=== PATIENT | female | born 1965 | race Caucasian/White ===

== ENCOUNTER 2022-07-30 09:28 | Outpatient (REF) | payer OTHER, SELFPAY ==
[2022-07-30 11:13] LABS: MANUAL DIFF FLAG NO
[2022-07-30 11:26] LABS: Basophils Percent Auto 0.7 % (0-2); Eosinophils Absolute Auto 0.1 X10*3/uL (0.0-0.4); Eosinophils Percent Auto 3.3 % (0-4); Hemoglobin 13.8 g/dl (12.0-16.0); Imm Gran Abs Auto 0.01 X10*3/uL (0.00-0.03); Imm Gran Pct Auto 0.2 % (0.0-0.4); Lymphocytes Absolute Auto 1.9 X10*3/uL (1.2-4.9); Lymphocytes Percent Auto 44.4 % (20-40); Mean Corpuscular HGB Conc 33.7 g/dl (31.0-35.0); Mean Corpuscular Hemoglobin 29.1 pg (27.0-33.0); Mean Corpuscular Volume 86.3 fL (80.0-98.0); Mean Platelet Volume 10.5 fL (9.4-12.3); Monocytes Absolute Auto 0.3 X10*3/uL (0.1-1.2); Monocytes Percent Auto 6.3 % (2-11); Neutrophils Absolute Auto 1.9 x10*3/uL (2.0-8.3); Neutrophils Percent Auto 45.1 % (45-73); Platelet Count 213 X10*3/uL (160-400); Red Blood Count 4.75 X10*6/uL (4.20-5.50); Red Cell Distribution Width 12.3 % (11.0-16.0); White Blood Count 4.3 X10*3/uL (4.8-10.8)
[2022-07-30 13:08] LABS: Alanine Aminotransferase 18 U/L (0-31); Albumin Level 4.6 g/dL (3.5-5.0); Alkaline Phosphatase 79 U/L (39-117); Anion Gap 12 (12-20); Aspartate Amino Transferase 20 U/L (5-31); Bilirubin Total 0.5 mg/dL (0.0-1.0); Blood Urea Nitrogen 17 mg/dL (9-16); Calcium 10.3 mg/dL (8.4-10.2); Carbon Dioxide 27 mmol/L (22-29); Chloride 105 mmol/L (96-108); Cholesterol 301 mg/dL; Estimated Glomerular Filt Rate > 60; Glucose Random 87 mg/dL (60-115); HDL Cholesterol 55 mg/dL; Iron 119 mcg/dL (30-160); LDL Cholesterol Calculated 221 mg/dl; Percent Iron Saturation 40 % (15-50); Potassium 4.6 mmol/L (3.3-5.1); Sodium 139 mmol/L (135-145); Total Iron Binding Capacity 294 mcg/dL (228-428); Triglycerides 127 mg/dL; Unsaturated Iron Binding 175 ug/dL
[2022-07-30 13:14] LABS: Ferritin 140 ng/mL (10-250)
[2022-07-30 13:15] LABS: Vitamin D 25-OH Total 110.5 ng/mL (>30)
[2022-08-04 16:18] LABS: Vitamin D 25-OH, D2 <4 ng/mL; Vitamin D 25-OH, D3 114 ng/mL; Vitamin D 25-OH, Total 114 ng/mL (30-100)
[2022-08-05 20:19] LABS: VITAMIN D (1,25 OH) D3 59 pg/mL; Vit D (1,25-Dihydroxy) Total 59 pg/mL (18-72); Vitamin D (1,25 OH) D2 <8 pg/mL
== END 2022-07-30 09:29 | disposition home or self-care (01) ==
LOC: HO.MANLDS 09:28
PROVIDERS: Visit Provider Internal Medicine
DX: E55.9 Vitamin D deficiency, unspecified (principal); E78.5 Hyperlipidemia, unspecified
CPT/HCPCS: 36415; 80053; 80061; 82306; 82652; 82728; 83540; 85025

== ENCOUNTER 2024-01-12 15:04 | Outpatient (REF) | payer OTHER, SELFPAY ==
[2024-01-12 18:11] LABS: MANUAL DIFF FLAG NO
[2024-01-12 18:44] LABS: Alanine Aminotransferase 33 U/L (0-31); Albumin Level 3.9 g/dL (3.5-5.0); Alkaline Phosphatase 121 U/L (39-117); Anion Gap 12 (12-20); Aspartate Amino Transferase 22 U/L (5-31); Bilirubin Total 0.3 mg/dL (0.0-1.0); Blood Urea Nitrogen 14 mg/dL (9-16); C Reactive Protein 6.55 mg/dL (< or = 0.50); Calcium 10.6 mg/dL (8.4-10.2); Carbon Dioxide 26 mmol/L (22-29); Chloride 105 mmol/L (96-108); Estimated Glomerular Filt Rate > 60; Glucose Random 96 mg/dL (60-115); Iron 22 mcg/dL (30-160); Magnesium 2.3 mg/dL (1.6-2.6); Percent Iron Saturation 11 % (15-50); Phosphorus 3.1 mg/dL (2.7-4.5); Potassium 4.4 mmol/L (3.3-5.1); Sodium 139 mmol/L (135-145); Total Iron Binding Capacity 207 mcg/dL (228-428); Total Protein 7.3 g/dL (6.5-8.0); Unsaturated Iron Binding 185 ug/dL
[2024-01-12 18:45] LABS: Appearance Urine Turbid; Color Urine Yellow; Glucose Urine UA Negative (Negative); Leukocyte Esterase Urine Negative (Negative); Nitrite Urine Negative (Negative); PH 8.5 (5.0-9.0); Specific Gravity - Urine 1.015 (1.005-1.025); Urine Blood Negative (Negative); Urine Ketones Negative (Negative); Urine Protein Negative (Neg-Trace)
[2024-01-12 18:49] LABS: Basophils Percent Auto 0.6 % (0-2); Eosinophils Absolute Auto 0.1 X10*3/uL (0.0-0.4); Eosinophils Percent Auto 1.3 % (0-4); Hematocrit 33.5 % (37.0-47.0); Hemoglobin 10.8 g/dl (12.0-16.0); Imm Gran Abs Auto 0.04 X10*3/uL (0.00-0.03); Imm Gran Pct Auto 0.6 % (0.0-0.4); Lymphocytes Absolute Auto 0.9 X10*3/uL (1.2-4.9); Lymphocytes Percent Auto 14.9 % (20-40); Mean Corpuscular HGB Conc 32.2 g/dl (31.0-35.0); Mean Corpuscular Hemoglobin 28.5 pg (27.0-33.0); Mean Corpuscular Volume 88.4 fL (80.0-98.0); Mean Platelet Volume 10.5 fL (9.4-12.3); Monocytes Absolute Auto 0.5 X10*3/uL (0.1-1.2); Monocytes Percent Auto 7.8 % (2-11); Neutrophils Absolute Auto 4.6 x10*3/uL (2.0-8.3); Neutrophils Percent Auto 74.8 % (45-73); Platelet Count 375 X10*3/uL (160-400); Red Blood Count 3.79 X10*6/uL (4.20-5.50); Red Cell Distribution Width 13.3 % (11.0-16.0); White Blood Count 6.2 X10*3/uL (4.8-10.8)
[2024-01-12 18:50] LABS: Bacteria Urine None Seen (None Seen); Hyaline Casts Urine 0-2 /LPF (0-2); RBC Urine 0-2 /HPF (0-2); Squamous Epithelial Cell Urine 0-2 /HPF (0-2); WBC Urine 0-5 /HPF (0-5)
[2024-01-12 18:59] LABS: Ferritin 225 ng/mL (10-250); Free T4 (Free Thyroxine) 0.92 ng/dL (0.71-1.85); Thyroid Stimulating Hormone 1.51 uIU/mL (0.32-4.0); Vitamin D 25-OH Total 39.6 ng/mL (>30)
[2024-01-12 19:16] LABS: Vitamin B12 1389 pg/mL (200-900)
[2024-01-12 19:35] LABS: Erythrocyte Sedimentation Rate 90 MM/HR (0-20)
[2024-01-13 07:22] LABS: Parathyroid Hormone Intact 86.4 pg/mL (8.7-77.1)
[2024-01-15 14:00] LABS: Lyme Abs Screen POSITIVE
[2024-01-19 19:58] LABS: 18 KD (IgG) Band NON-REACTIVE; 23 KD (IgG) Band REACTIVE; 23 KD (IgM) Band REACTIVE; 28 KD (IgG) Band NON-REACTIVE; 30 KD (IgG) Band NON-REACTIVE; 39 KD (IgM) Band REACTIVE; 39KD (IgG) Band NON-REACTIVE; 41 KD (IgM) Band REACTIVE; 41KD (IgG) Band REACTIVE; 45 KD (IgG) Band NON-REACTIVE; 58 KD (IgG) Band NON-REACTIVE; 66 KD (IgG) Band NON-REACTIVE; 93 KD (IgG) Band NON-REACTIVE; Lyme IgG Blot Interp NEGATIVE (NEGATIVE); Lyme IgM Blot Interp POSITIVE (NEGATIVE)
[2024-01-25 09:18] LABS: A. Phagocytophilum Ab IgG <1:64 (<1:64); A. Phagocytophilum Ab IgM <1:20 (<1:20); E. Chaffeensis Ab IgG <1:64 (<1:64); E. Chaffeensis Ab IgM <1:20 (<1:20)
== END 2024-01-12 15:05 | disposition home or self-care (01) ==
LOC: HO.MANLDS 15:04
PROVIDERS: Visit Provider Physician Assistant
DX: R30.0 Dysuria (principal); M79.18 Myalgia, other site; R51.9 Headache, unspecified
CPT/HCPCS: 36415; 80053; 81001; 82306; 82550; 82607; 82728; 82746; 83540; 83735; 83970; 84100; 84439; 84443; 85025; 85652; 86140; 86617; 86618; 86666

== ENCOUNTER 2025-02-14 07:42 | Outpatient (REF) | payer OTHER, SELFPAY ==
--- OUTSIDE RECORDS SUMMARY | 2025-02-14 07:45 | XMS_ITS | Data Portability ---
Author Organization [facility] [place] [facility], [facility] Address [address] [place] [address] Assessment No assessment recorded. Plan of Treatment Reminders Order Date Submit Date Provider Last Modified By Organization Details Last Modified Time Details Appointments NEW PROBLEM 2024 10:30A M Diamond Bunn i, PA-C Not available Not available Not available Lab None recorded . Referral None recorded . Procedures None recorded . Surgeries None recorded . Imaging XR, hip + pelvis, unilater al, 2 or 3 view - room 3 right hip 2V KR [address] [facility], [address], [address], [place], [address], 03/07/2024 16:15:07 Medication Orders None recorded . Patient TargetsNo targets recorded. Patient InstructionsNo instructions recorded. Reason for Referral None Reported. Results Created Date Observation Date Name Description Value Unit Range Abnormal Flag Note LastModifiedBy Organization Detail LastModifiedTime 03/07/20 24 03/07/2024 XR, hip + pelvi s, unila teral , 2 or 3 view http:/ [email or web address] ?Encry pted=s hAaTro YD8dLq bEUv6g %2BXZw aYqtaq 0bqfl% 2Fg9IQ a4ajBk vP9nXo QUaueC m3YtLR FvZlgJ JJ8mAn HZtai3 9u3432 AC0Kra niAVav eUC8mr 84%3D INTERFACE [facility] [address], [place], [address], 03/07/2024 09:00:49 03/07/20 24 03/07/2024 XR, hip + pelvi s, unila teral , 2 or 3 view http:/ [email or web address] ?Encry pted=s hAaTro YD8dLq bEUv6g %2BXZw aYqtaq 0bqfl% 2Fg9IQ a4ajBk vP9nXo QUaueC m3YtLR FvZlgJ JJ8mAn HZtai3 1h3135 AC0Kra niAVav eUC8mr 84%3D INTERFACE [facility] [address], [place], [address], 03/07/2024 09:00:51 Result Notes Documentation Provider Name and Address Organization Details Recorded Time Xr, Hip + Pelvis, Unilateral, 2 Or 3 View : [email or web address] Encrypted=kjBuTanOX6uOaqU Uv6g%8KHXkuRldkd6hqbg%2Fg 2TFs4ifVtdL2dByTMokiGm8Fl DUReWurCPD2cZlUWwvo42w017 4XZ4UcwdfQDihcOY8uj18%3D Not Available [facility] 03/07/2024 09:0 0:50 Xr, Hip + Pelvis, Unilateral, 2 Or 3 View : [email or web address] Encrypted=bmYqOomRX2pUswZ Uv6g%5WRVzsWngpu7ggii%2Fg 4IEo5isWfmH2jEiPIqjzVn7Ai RPVfWeeWGT2mGyDPjhf75r405 4NC6GknitLIhxjUN8wh62%3D Not Available [facility] 03/07/2024 09:0 0:52 Problems Name Problem SNOMED Code Status Onset Date Resolution Date Notes Provider Name and Address Organization Details Recorded Time Osteoarthri tis of right hip joint 4847803532011 07 Active 2024 Corie Dangelo PA-C [address], [facility] [place], [address], [facility] 10:01:59 Problem Notes None recorded. Procedures Surgical History Date Name Laterality Status Provider Name and Address Organization Details Recorded Time 01/16/2025 Nishant US completed Corie Dangelo PA-C [address], [place], [address], [facility] 01/16/2025 09:50:12 03/25/2024 Sports Knee 4&1 completed Corie Dangelo PA-C [address], [place], [address], [facility] 03/24/2024 12:55:05 Imaging Results None recorded. Procedure Notes None recorded. Medical Equipment None Reported. Allergies No known drug allergies Medications Name Sig Start Date Stop Date Status Note LastModified by Organization Details LastModified Time benzonatate 200 mg capsule TAKE 1 CAPSULE BY MOUTH THREE TIMES DAILY FOR 14 DAYS NEEDED FOR COUGH 01/16 completed Not Available Not Available Not Available meloxicam 15 mg tablet TAKE 1 TABLET BY MOUTH EVERY DAY WITH MEALS 01/16 completed Not Available Not Available Not Available amoxicillin 875 mg tablet TAKE 1 TABLET BY MOUTH EVERY 12 HOURS FOR 7 DAYS 03/25 completed Not Available Not Available Not Available methylpredn isolone 4 mg tablets in a dose pack FOLLOW PACKAGE DIRECTION S 01/16 completed Not Available Not Available Not Available doxycycline hyclate 100 mg tablet TAKE 1 TABLET BY MOUTH TWICE DAILY FOR 10 DAYS 01/16 completed Not Available Not Available Not Available nabumetone 500 mg tablet TAKE 1 TABLET BY MOUTH TWICE DAILY FOR 14 DAYS NEEDED 01/16 completed Not Available Not Available Not Available Vitals Date Recorded Body height Body mass index (BMI) Body weight Provider Name and Address Organization Details Last Updated DateTime 01/16/2025 162.56 cm 24 kg/m2 94544.93 g KAPURA L'HEUREUX [facility] 01/16/2025 09:29:56 Date Recorded Body height Body mass index (BMI) Body weight Provider Name and Address Organization Details Last Updated DateTime 03/07/2024 162.56 cm 24 kg/m2 96883.93 g MAHESH OLIVER [facility] 03/07/2024 08:54:17 Date Recorded Body height Body mass index (BMI) Body weight Provider Name and Address Organization Details Last Updated DateTime 03/25/2024 162.56 cm 24 kg/m2 04468.93 g Eliza sierra [facility] 03/25/2024 10:56:26 Social History Question Answer Notes LastModified by [employer] Details LastModified Time Tobacco Smoking Status Never Smoker Eliza sierra [facility] 03/25/2024 10:56:06 What Is Your Relationship Status? Information not available 03/25/2024 Sex: Unknown Functional Status Question Answer Note LastModified by [employer] Details LastModified Time How many times per week do you consume alcohol? Less than 1 time per week Information not available 03/25/2024 Do you use any illicit or recreational drugs? No Information not available 03/25/2024 Do you or have you ever used any other forms of tobacco or nicotine? No Information not available 03/25/2024 Do you or have you ever used e-cigarettes or vape? Never used electronic cigarettes Information not available 03/25/2024 Mental Status None recorded. Family History Nothing Reported. Medical History Condition Response Coronary Artery Disease N Anxiety/Depression N Emphysema N COPD N Pacemaker N Vascular Disease N Heart Trouble N Gastrointestinal Disease N Autoimmune disease N Inflammatory Joint disease N Orthotics N Arthritis Y Blood Clot N Acid Reflux (GERD) N Cancer N Stroke N Circulation Problems N Rheumatoid Arthritis N Arrhythmia N Headaches N Fibromyalgia N Allergies/Hayfever N Breathing or lung disorders N Nerve Disorders N Thyroid Problems N Kidney/Bladder Problems N Anemia N Heart Attack (AZ) N Cholesterol N Diabetes N Bleeding Disorder N Seizures/Epilepsy N AIDS/HIV N Congestive Heart Failure (CHF) N Asthma N Peripheral Vascular Disease N Sleep Apnea N Hepatitis N Heart Disease N Pulmonary Embolism N Hypertension N Osteoporosis N Gynecological HistoryNo gynecological history recorded. Obstetrics History GPAL:G 0 P 0 0 0 0 Past Encounters Encounter ID Performer Location Encounter Start Date Encounter Closed Date Diagnosis/Indication Diagnosis SNOMED-CT Code Diagnosis ICD10 Code Diagnosis Note [id number] CHANTE [facility] [address] [place] [address] 03/07/2024 08:43:18 04/04/2024 11:39:36 Pain of right hip joint 8199103973 59689 M25.551 Osteoarthr itis of right hip joint 7414618914 98942 M16.11 Reviewed patient's imaging and exam findings in detail with her. Reviewed that she has moderate right hip osteoarthr itis for which the only cure is total hip replacemen t. Did discuss that at some point in her lifetime she may require total joint replacemen t. However would recommend exhausting conservati ve care first. Discussed activity modificati on with low impact exercise such as stationary biking, swimming or rowing. Also discussed use of prescripti on oral anti-infla mmatories. She prefers to use more than all natural remedy including frankincen se. Also discussed utility of ultrasound -guided intra-eli cular injection with cortisone versus PRP. She would like to do some more research on PRP and will call us when she decides which route she would like to go. If she would like a cortisone injection I would be happy to see her however she would like PRP injection then would recommend referral to Dr. Clyde Coleman for ultrasound -guided IA hip injection. All questions and concerns were addressed and answered. [id number] Corie Dangelo PA-C [facility] on [address] [place] [address] 03/25/2024 10:47:22 04/20/2024 12:14:11 Osteoarthritis of right hip joint 3258030517 93932 M16.11 After a long discussion with the patient which included the risk and benefits of the procedure. The patient is interested in proceeding with ultrasound guided Right intra-eli cular hip injection. After consent was obtained we proceeded with injection. Risks of the procedure were discussed with patient including worsening osteoarthr itis, small risk to blood vessels and tendons and nerves.Aft er consent was obtained from the patient. Under normal sterile fashion using chlorhexid ine, under ultrasound guidance, neurovascu lar bundle was first identified and then 2 cc of 1% lidocaine 1 cc of 40 mg of Kenalog was injected intra-eli cularly into the patient's hip. Ultrasound documentat ion was saved into PACS. Patient tolerated procedure well. Postproced ure protocol was discussed with the patient. Patient will contact with any questions or worsening symptoms. Follow-up as discussed [id number] Corie Dangelo PA-C JOSE CARLOS [facility] [address] [place] [address] 01/16/2025 09:24:23 01/31/2025 15:09:42 Osteoarthritis of right hip joint 5322682849 54174 M16.11 After a long discussion with the patient which included the risk and benefits of the procedure. The patient is interested in proceeding with ultrasound guided Right intra-eli cular hip injection. After consent was obtained we proceeded with injection. Risks of the procedure were discussed with patient including worsening osteoarthr itis, small risk to blood vessels and tendons and nerves.Aft er consent was obtained from the patient. Under normal sterile fashion using chlorhexid ine, under ultrasound guidance, neurovascu lar bundle was first identified and then 2 cc of 1% lidocaine 1 cc of 40 mg of Kenalog was injected intra-eli cularly into the patient's hip. Ultrasound documentat ion was saved into PACS. Patient tolerated procedure well. Postproced ure protocol was discussed with the patient. Patient will contact with any questions or worsening symptoms. Follow-up as discussed Health Concerns Section Related Observation LastModified by Organization Detai ls LastModified Time None Recorded Concern Status LastModified by Organization Details LastModified Time None Recorded Advance Directives Directive None Recorded Payers Insurance Date Sequence Insurance Name Policy Number Policy Eli Covered Member ID Eli Member ID Guarantor Name 01/13/2025 1 [employer] (PPO) [id number] Mohini Boswell [id number] Mohini Boswell 01/31/2025 1 BLUE BENEFIT ADMINISTRATORS [facility] (PPO) [id number] Mohini Boswell [id number] Mohini Daysgodwin OBGyn Episode No OBEpisode recorded.
--- OUTSIDE RECORDS SUMMARY | 2025-02-14 07:45 | XMS_ITS | Clinical Summary ---
Author Organization [facility] Address [address] [place] [address] Phone Care Team Providers Care Signal Tower Director Name Role Phone Raul Hein DO Primary Care Provider [phone] Allergies No known active allergies Medications cyanocobalamin (VIT B-12) 1000 MCG tablet Take 100 mcg by mouth daily. Active Active Problems Problem Noted Date Diagnosed Date Abnormal uterine bleeding 03/10/2018 Assessment & Plan (03/10/2018 10:53 PM EDT): Reviewed overall bleeding pattern which sounds consistent with normal perimenopausal progression. This is the first episode of prolonged bleeding that Mohini has experienced. Plan to begin evaluation with an ultrasound as polyps or other structural abnormalities are also in the differential. Discussed potential need for EMB if prolonged bleeding persists or if indicated by ultrasound. Discussed use of alternative therapies as Mohini also enquired about using Wild Yam cream for general health and well being. Advised that these supplements are not regulated by the FDA thus cannot speak to their ingredients/potency/efficacy. Unclear if her hormonal status or menstrual cycles will be impacted by these supplements. Given decrease in bleeding, recommend cessation of progesterone as well. Advised that she may have a transient increase bleeding upon stopping but would expect this to end after a week or so. Bleeding precautions reviewed. Encounters Date Type Department Care Team Description 02/06/2025 9:22 AM EDT - 02/06/2025 11:59 PM EDT Hospital Encounter [facility] [address] [place] [address] Shante Adamson PA Discharge Disposition: Home or Self Care 02/06/2025 Transcribe Orders [facility] [address] [place] [address] Shante Adamson PA Lyme disease (Primary Dx) from Last 3 Months Family History Medical History Relation Comments Pancreatic cancer Father Tuberculosis Maternal Grandfather Heart failure Maternal Grandmother Drug abuse Mother overdose Other Paternal Grandfather MVA Kidney failure Paternal Grandmother Relation Status Comments Brother 1 Alive Brother 2 Alive Brother 3 Alive Brother 4 Alive Father Maternal Grandfather Maternal Grandmother Mother Paternal Grandfather Paternal Grandmother Sister 1 Alive Sister 2 Alive Social History Tobacco Use Types Packs/Day Years Used Date Smoking Tobacco: Never Smokeless Tobacco: Never Alcohol Use Standard Drinks/Week Comments Yes 0 (1 standard drink = 0.6 oz pur e alcohol) occ monthly Education Answer Date Recorded Are you interested in more education? Not on daniel e 11/14/2022 Are you concerned about learning? Not on file 11/14/2022 No 11/14/2022 No 11/14/2022 Digital Access Answer Date Recorded No 12/13/2022 No 12/13/2022 No 12/13/2022 Reliable internet access at home? Not on file 12/13/2022 Device with a working camera? 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 Not on file Not on daniel e Last Filed Vital Signs Vital Sign Reading Time Taken Comments Blood Pressure 112/84 03/09/2018 11:47 AM EDT Pulse - - Temperature - - Respiratory Rate - - Oxygen Saturation - - Inhaled Oxygen Concentration - - Weight 63.5 kg (140 lb) 03/09/2018 11:47 AM EDT Height 162.6 cm (5' 4 ) 03/09/2018 11:47 AM EDT Body Mass Index 24.03 03/09/2018 11:47 AM EDT Plan of Treatment Health Maintenance Due Date Last Done Comments LIPID PANEL 1966 DEPRESSION SCREENING 1978 HEPATITIS C SCREENING 1984 HIV ONE-TIME SCREENING (18-6 5 YEARS) 1984 PAP SMEAR 1987 MAMMOGRAM 2006 COLOGUARD 2011 COLONOSCOPY 2011 COLORECTAL CANCER SCREENING 2011 FIT TEST 2011 FOBT 2011 SIGMOIDOSCOPY 2011 VIRTUAL COLONOSCOPY 2011 PNEUMOCOCCAL VACCINES (50+ years) (1 of 1 - PCV) 2016 ZOSTER VACCINES (1 of 2) 2016 Adult Td,Tdap Booster 07/22/2022 07/22/2012 , 06/05/2008 COVID-19 VACCINE ( - 2023-2 5 season) 2024 SMOKING STATUS SCREENING (On ce After 26 Yrs) Completed 03/09/2018 HEPATITIS A VACCINES Aged Out No long er eligible based on patient's age to complete this topic HIB VACCINES Aged Out No longer eligi ble based on patient's age to complete this topic MENINGOCOCCAL VACCINES (ACWY) Aged Out No longer eligible based on patient's age to complete this topic MENINGOCOCCAL VACCINES (B) Aged Out N o longer eligible based on patient's age to complete this topic Medical Devices Not on file Procedures Procedure Name Priority Date/Time Associated Diagnosis Comments LYME WESTERN BLOT ONLY Routine 02/06/2025 9:23 AM EDT LYME SCREEN WITH REFLEX TO WESTERN BLOT, BLOOD Routine 02/06/2025 9:23 AM EDT Lyme disease Ehrlichia/anaplasma PCR Routine 02/06/2025 9:23 AM EDT Lyme disease from Last 3 Months Results * (ABNORMAL) Lyme Western blot only (02/06/2025 9:23 AM EDT) IGG Immunoblot Positive( A) Negative [facility] [address] IGG BANDS (KDA) p66,p45,p 41,p39,p2 3,p18 kDa [facility]/PATH [address] DR IGM Immunoblot Positive( A) Negative [facility]PATH [address] DR IGM BANDS (KDA) p41,p23 kDa [facility] [address] Interpretation - Lyme SEE NOTE [facility] [address] Comment: (NOTE) Consistent with active or previous infection for B. burgdorferi. IgM blot criteria is of diagnostic utility only during the first 4 weeks of early Lyme disease. ADDITIONAL INFORMATION Per CDC criteria, the Lyme IgG Immunoblot is interpreted as positive if IgG-class antibodies are detected to >=5 B. burgdorferi proteins, and the Lyme IgM Immunoblot is interpreted as positive if IgM-class antibodies are detected to >=2 B. burgdorferi proteins. Immunoblot patterns not meeting these criteria should not be interpreted as positive. Epitopes from certain B. burgdorferi proteins (e.g., p41) are conserved across other bacteria, which may lead to the detection of IgM- and/or IgG-class antibodies on the Lyme disease immunoblots in patients without Lyme disease. Immunoblot should only be ordered on specimens that are positive or equivocal by a FDA-licensed Lyme disease antibody screening test (e.g., EIA). Results of the Lyme IgM immunoblot should not be considered in patients with >= 30 days of symptoms. 02/06/2025 9:23 AM EDT 02/06/2025 9:26 AM EDT Shante JOHN LAB BLOOD ORDERABLES Final Result [facility] [address] [place] [address] * Ehrlichia/anaplasma PCR (02/06/2025 9:23 AM EDT) ANAPLASMA PHAGOCYTO Negative Negative [facility] DPT OF LAB MED AND PAT+ EHRLICHIA CHAFFEENS Negative Negative [facility] DPT OF LAB MED AND PAT+ EHRL EWINGII/CANIS Negative Negative [facility] DPT OF LAB MED AND PAT+ EHRL MURIS-LIKE Negative Negative [facility] DPT OF LAB MED AND PAT+ Comment: (NOTE) ADDITIONAL INFORMATION This test was developed and its performance characteristics determined by [facility] in a manner consistent with CLIA requirements. This test has not been cleared or approved by the U.S. Food and Drug Administration. Blood 02/06/2025 9:23 AM EDT 02/06/2025 9:26 AM EDT us Shante JOHN LAB BLOOD ORDERABLES Final Result [facility] DPT OF LAB MED AND PAT+ [address] [place] [address] * (ABNORMAL) Lyme Screen with Reflex to Immunoblot, Blood (02/06/2025 9:23 AM EDT) Lyme AB IgG Positive(A ) Negative [facility] Comment:The Lyme Disease Ant ibody, Confirmation, Serum (Western Blot) has been reflexed. The results will follow. Lyme AB IgM Positive(A ) Negative [facility] Comment:The Lyme Disease Ant ibody, Confirmation, Serum (Western Blot) has been reflexed. The results will follow. Blood 02/06/2025 9:23 AM EDT 02/06/2025 9:26 AM EDT us Shante JOHN LAB BLOOD ORDERABLES Final Result [facility] [address] [place], [place] [id number] from Last 3 Months Insurance [facility] OUT OF STATE PPO [employer] OUT OF STATE PPO [employer] OUT OF STATE PPO [employer] OUT OF STATE PPO [facility] OUT OF [facility] PPO [facility] OUT OF STATE PPO Care Teams Signal Tower Director Relationship Specialty Start Date End Date Raul Hein [address] [place] [address] [email or web address] PCP - General Internal Medicine 08/17/24 Additional Source Comments The information contained in this document represents components of the legal health record. It is not the complete legal health record.[facility]
[2025-02-18 00:33] LABS: VITAMIN D (1,25 OH) D3 47 pg/mL; Vit D (1,25-Dihydroxy) Total 47 pg/mL (18-72); Vitamin D (1,25 OH) D2 <8 pg/mL
[2025-02-23 13:18] LABS: Vitamin D 25-OH, D2 <4 ng/mL; Vitamin D 25-OH, D3 154 ng/mL; Vitamin D 25-OH, Total 154 ng/mL (30-100)
== END 2025-02-14 07:43 | disposition home or self-care (01) ==
LOC: HO.MANLDS 07:42
PROVIDERS: Visit Provider Physician Assistant
DX: R63.5 Abnormal weight gain (principal); E55.9 Vitamin D deficiency, unspecified
CPT/HCPCS: 36415; 82306; 82652; 83525